=== PATIENT | male | born 1980 | race Caucasian/White ===

== ENCOUNTER → 2023-12-17 09:21 | Outpatient (REF) | payer OTHER, SELFPAY | LOC: RCS 09:21 | PROVIDERS: ATTENDING PHYSICIAN Physician Assistant Medical; FAMILY PHYSICIAN Family Medicine | DX: I10 Essential (primary) hypertension (principal); I51.7 Cardiomegaly; I77.810 Thoracic aortic ectasia | CPT/HCPCS: 93306 ==

== ENCOUNTER → 2024-09-29 10:03 | Outpatient (REF) | payer OTHER, SELFPAY | LOC: PAVMRI 10:03 | PROVIDERS: ATTENDING PHYSICIAN Internal Medicine Cardiovascular Disease; FAMILY PHYSICIAN Family Medicine | DX: I10 Essential (primary) hypertension (principal); I77.810 Thoracic aortic ectasia; I51.7 Cardiomegaly; Q25.43 Congenital aneurysm of aorta | CPT/HCPCS: 71555; A9585 ==

== ENCOUNTER → 2024-12-01 15:59 | Outpatient (REF) | payer OTHER, SELFPAY | LOC: RCS 15:59 | PROVIDERS: ATTENDING PHYSICIAN Internal Medicine Cardiovascular Disease; FAMILY PHYSICIAN Family Medicine | DX: I77.810 Thoracic aortic ectasia (principal); I51.7 Cardiomegaly; R06.02 Shortness of breath | CPT/HCPCS: 93306 ==

== ENCOUNTER 2025-04-05 14:39 | Emergency (ER) | payer BC, SELFPAY ==
[2025-04-05 14:44] VITALS: BP 140/98
--- NOTE | 2025-04-05 15:32 | ED.GENMED ---
History of Present Illness
General
Chief Complaint: Chest Problem
Source: patient
Exam Limitations: none
Time Seen by Provider: 04/05/25 15:08
Nursing documentation reviewed up to this point in time: agreed with except (Patient did not have a AAA repair he had an aortic root repair)
History of Present Illness
History of Present Illness:
45 male left-sided chest pain onset today sharp worse with movement better with rest 4 weeks status post aortic root surgery by Dr Dugan
No fever no chills no nausea no vomiting does not feel short of breath no heavy lifting no drainage from his sternal wound
Past History
Past History
ED Past Medical History: Other (Aortic root aortic valve)
ED Past Surgical History: Cardiac
Social History
Tobacco: Non-smoker
Alcohol: None
Drug: None
Personal: Single
Living: with family
Employment: Employed
Phy Exam
Physical Exam
Physical Exam:
Physical Exam
General: no apparent distress, not acutely ill
Neck: No JVD
Heart: s1/s2 regular rate and rhythm, no murmur. equal radial pulses.
Lungs: no acute respiratory distress. Sternal wound clean dry and intact without drainage reproducible tenderness just lateral to the inferior portion of the sternal
Abdomen: Nontender
Neuro: alert and oriented. no focal neurological deficits
Skin: no rash
Psychiatric: well kept. interactive and cooperative
Extremities: no edema.
Course
Orders/Labs/Results
Orders:
Orders
04/05/25 14:43
EKG [Electrocardiogram (*1)] Urgent
Reason for Study: Chest Pain
EKG- Treatment ONCE
04/05/25 15:26
CR Chest - 2 Views Urgent
Comment:
Reason For Exam: cp
04/05/25 15:27
Oxycodone [Roxicodone] 5 mg PO NOW STA
04/05/25 15:29
Echo 2D MMode Color/Doppler Urgent
Reason for Study: cp aortic root surgery
04/05/25 15:35
Add On- LAB Urgent
Tests Added?: Lipase
04/05/25 15:43
Complete Blood Count/With Diff Urgent
04/05/25 17:02
Comprehensive Metabolic Panel Urgent
Lipase Urgent
Abnormal Lab Results
04/05/25
15:43
WBC 4.4 L 10^3/uL
(4.8-10.8)
RBC 4.29 L 10^6/uL
(4.70-6.10)
MCHC 32.3 L g/dL
(33.0-37.0)
MPV 11.2 H fL
(7.4-10.4)
04/05/25 15:43
04/05/25 17:02
Vital Signs
Initial and Last Documented VS:
Initial Vital Signs
Temp Pulse Resp BP Pulse Ox
98.7 F 75 16 140/98 98
04/05/25 14:44 04/05/25 14:44 04/05/25 14:44 04/05/25 14:44 04/05/25 14:44
Last Documented Vital Signs
Temp Pulse Resp BP Pulse Ox
98.7 F 75 16 140/98 98
04/05/25 14:44 04/05/25 14:44 04/05/25 14:44 04/05/25 14:44 04/05/25 15:34
MDM/Problems Addressed
Differential Diagnosis Includes:
Musculoskeletal postsurgical pain, structural pain with his repair less likely pneumothorax less likely surgical wire rupture perhaps
MDM/Problems Addressed:
Chest pain
Chronic conditions affecting care:
Recent cardiac surgery
Acute Exacerbation and/or Progression of Chronic Illness:
Recent cardiac surgery
*Radiology
Radiology exam reviewed: preliminary read by ED provider
*Pulse Oximetry
SaO2: 98
Oxygen Mode of Delivery: Room air
Patient hypoxic: no
*EKG
Interpreted by ED Provider?: Yes
Interpretation: normal
Comparison EKG: no comparison EKG present
Heart Rate: 78
Rate: normal
Rhythm: sinus
Ischemia: no ischemia
*Correctional Classification Counselor Interpretation
Rate: normal
Interpretation: normal
Heart Rate: 70
*Critical Care Note
Total Time (30-74mins, 75-104mins- exclusive of procedures): Not Applicable
Update Note
Update Note:
Update chest x-ray noted no obvious rib wire issue, EKG noted, echo report noted symptoms only with movement, no fever or changes on EKG consistent with pericarditis
ED Attending Note
-
Portions of this chart may have been created with voice recognition software.� Occasional wrong word or��sound alike� substitutions may have occurred due to the inherent limitations of voice recognition software.
Discharge Plan
Departure
Patient Disposition: Home (Routine Discharge)
Date of Disposition: 04/05/25
Time of Disposition: 17:37
Patient with high blood pressure during this ER visit?: No
Condition: Good
Discharge Problem:
Post-op pain
Prescriptions:
New
oxycodone-acetaminophen [Percocet] 5-325 mg tablet
1 tab PO Q6HPRN PRN (Reason: pain) Qty: 14 0RF
Referrals:
Sky Marion, DO [Family Provider, Family Practice]
Activity Restrictions/Additional Instructions:
Call Dr. Damon's office tomorrow to arrange follow-up care
Interventions
Interventions:
*Risk Screen - Suicide Last Done: 04/05/25 14:44
*General Assessment Last Done: 04/05/25 14:44
*ED- Fall Risk Assessment Last Done: 04/05/25 14:44
*ED COVID-19 Vaccine History Last Done: 04/05/25 14:44
*ED Influenza Vaccine History Last Done: 04/05/25 14:44
Discharge Date and Time
Print Language: CHINESE
[2025-04-05] MEDS: ROXICODONE 5 MG PO (15:36)
[2025-04-05 16:37] LABS: Hematocrit 40.2 % (39.0-52.0); Hemoglobin 13.0 g/dL (13.0-18.0); Mean Corp Hgb Conc. 32.3 g/dL (33.0-37.0); Nucleated Red Blood Cells % 0 % (-); Red Cell Dist. Width 11.9 % (11.5-14.5)
[2025-04-05 17:03] VITALS: BP 154/91
[2025-04-05 17:04] LABS: Mean Corpuscular Volume 93.7 fL (80.0-94.0)
[2025-04-05 17:33] LABS: ALT (SGPT) 30 U/L (0-50); AST (SGOT) 26 U/L (17-59); Albumin 4.3 g/dl (3.5-5.0); Alkaline Phosphatase 65 U/L (38-126); Blood Urea Nitrogen 16 mg/dl (9-20); Calcium 9.5 mg/dl (8.4-10.2); Carbon Dioxide 28 mmol/L (22-30); Chloride 106 mmol/L (98-107); Glucose 92 mg/dl (70-99); Lipase 41 U/L (23-300); Potassium 4.5 mmol/L (3.5-5.1); Sodium 140 mmol/L (135-145); Total Protein 7.0 g/dl (6.3-8.2); eGFR > 60.00
== END 2025-04-05 18:27 | disposition home or self-care (01) ==
LOC: EMR 14:39
PROVIDERS: EMERGENCY PHYSICIAN Emergency Medicine; FAMILY PHYSICIAN Family Medicine
DX: G89.18 Other acute postprocedural pain (principal)
CPT/HCPCS: 99284; 71046; 80053; 83690; 85025; 93005; 93306

== ENCOUNTER 2025-05-04 15:25 | Outpatient (RCR) | payer BC, SELFPAY | END 2025-05-04 23:59 | disposition home or self-care (01) | LOC: CRHB 15:25 | PROVIDERS: ATTENDING PHYSICIAN Internal Medicine Cardiovascular Disease; FAMILY PHYSICIAN Family Medicine | DX: Z95.4 Presence of other heart-valve replacement (principal); Z98.890 Other specified postprocedural states | CPT/HCPCS: 93797; 93798 ==

== ENCOUNTER → 2025-05-09 15:58 | Outpatient (REF) | payer BC, SELFPAY | LOC: RCS 15:58 | PROVIDERS: ATTENDING PHYSICIAN Internal Medicine Cardiovascular Disease; FAMILY PHYSICIAN Family Medicine | DX: I77.810 Thoracic aortic ectasia (principal); I51.7 Cardiomegaly; I10 Essential (primary) hypertension | CPT/HCPCS: 93306 ==

== ENCOUNTER 2025-05-25 16:44 | Outpatient (RCR) | payer BC, SELFPAY | END 2025-05-25 17:12 | disposition home or self-care (01) | LOC: CRHB 16:44 | PROVIDERS: ATTENDING PHYSICIAN Internal Medicine Cardiovascular Disease; FAMILY PHYSICIAN Family Medicine | DX: Z98.890 Other specified postprocedural states (principal); Z95.4 Presence of other heart-valve replacement (principal) | CPT/HCPCS: 93797; 93798 ==